=== PATIENT | female | born 1975 | race Caucasian/White ===

== ENCOUNTER 2016-12-01 17:07 | Inpatient (IN) | payer OTHER ==
[~2016-12-01] VITALS: Ht 167.6 cm; Wt 86.8 kg
[~2016-12-01 17:07] MED LIST: BUTA1CAP16 PO; DULO30CA PO; ELET20TA PO; HYDR-3825 PO; KLO5T PO; ONDA8TAB10 PO; OXYC-466 PO; PREG225C PO; TOPI100T32 PO
[2016-12-01 17:10] VITALS: BP 134/84; PULSE 103; RESP 20; O2SAT 100
--- NOTE | 2016-12-01 18:04 | ED.REPORT ---
HPI-General Illness Date of Service Dec 01, 2016 ED Provider: Chester Donaldson MD The patient is a 40 year old female with a complex history of Ankylosing spondylitis and fibromyalgia who presents to the ED with left leg swelling that began several weeks ago. She was seen in her [facility] clinic earlier today for ongoing/increased swelling and pain to the left leg. The pain has been radiating up to her thigh. Ultrasound at the clinic revealed a left knee DVT and her presentation was concerning for PE. CT imaging at the Residency clinic confirmed bilateral PE. Patient is currently complaining of recent SOB, chronic constipation, abdominal pain and back pain. She denies any bloody stools. Patient denies taking estrogen pills, recent immobility and has no previous history of blood clot. Patient is 3 shots into her 4 shot Misty treatment. Nursing Notes Stated Complaint: BLOOD CLOTS IN LEG & LUNGS Chief Complaint: General Complaint Nursing Notes Reviewed: Yes Allergies: Coded Allergies: Sulfa (Sulfonamide Antibiotics) (Verified Allergy, Intermediate, RASH/ FEVER, 12/01/16) TAPE (Verified Adverse Reaction, Intermediate, blisters, 12/01/16) morphine (Verified Adverse Reaction, Mild, itchy, 12/01/16) Scheduled Duloxetine (Cymbalta) 30 Mg Capsule.dr 30 MG PO DAILY Pregabalin (Lyrica) 225 Mg Capsule 225 MG PO BID Rifampin (Rifampin) 150 Mg Capsule 150 MG PO BID Sumatriptan Succinate (Imitrex) 4 Mg/0.5 Ml Cartridge 4 MG SQ ASDIRECTED Topiramate (Topamax) 100 Mg Tablet 100 MG PO BID Scheduled PRN Butalbital/Aspirin/Caff 50-325-40 mg (Fiorinal 50-325-40 mg) 1 Each Capsule 1-2 EACH PO Q4 PRN PRN Migraine Clonazepam (Clonazepam) 0.5 Mg Tab 0.5 MG PO TID PRN PRN For Anxiety Eletriptan HBr (Relpax) 20 Mg Tablet 20 MG PO BID PRN PRN MIGRAINE Hydrocodone-Acetaminophen 7.5-325 mg (Hydrocodone-Acetaminophen 7.5-325 mg) 1 Each Tablet 1 EACH PO BID PRN PRN For Pain Ondansetron ODT (Ondansetron ODT) 8 Mg Tab.rapdis 8 MG PO Q8 PRN PRN prn Propranolol HCl (Propranolol HCl) 20 Mg Tablet 20 MG PO TID PRN PRN Headache oxyCODONE-Acetaminophen 10-325 mg (oxyCODONE-Acetaminophen 10-325 mg) 1 Each Tablet 1 TABLET PO HS PRN PRN For Pain Miscellaneous Medications Adalimumab (Humira) 10 Mg/0.2 Ml Syringekit 10 MG SQ General Time Seen by MD: 18:02 Chief Complaint Other (LLE swelling) Hx Obtained From: Patient Arrived By: Walk-in Sudden in Onset?: No Onset Occurred: Yesterday Symptom Duration: Since onset Location: : Leg left Quality: Painful Radiation: : Leg left (Thigh) Severity: Current: Moderate Severity: Maximum: Moderate Associated with: Reports: Abdominal pain, Shortness of breath Pertinent Negative: Pt denies other symptoms Recent Healthcare: No recent hospitalization, Recent doctor visit Past Medical History Past Medical History Notes: Software Manager: Dr. Lopez Past Medical History Fibromyalgia and "lesions in brain" (chronic pain patient, on Percocet and Vicodin) Anxiety Diverticulitis Chronic intermittent abdominal pain, history of adhesions and bowel obstructions per patient Osteoarthritis Reports: Migraines Past Surgical History Bowel resection x2 for telescoping bowel Two exploratory abdominal surgeries Multiple surgeries for adhesions C-sections x3 Cholecystectomy Partial hysterectomy Tonsillectomy Smoking History Current Every Day Smoker Social History Alcohol Use: Denies alcohol use Drug Use: THC Other Social History: , Local resident Ambulatory Status Independent Review of Systems Full Review of Systems Respiratory: Reports: Shortness of breath GI: Reports: Abdominal pain, Constipation, Denies: Bloody/tarry stool Musculoskeletal: Reports: Back pain, Extremity pain (LLE), Extremity swelling ( LLE) Complete sys rev & neg: except as marked. Physical Exam Vital Signs Vital Signs Date Time Temp Pulse Resp B/P Pulse Ox O2 Delivery O2 Flow Rate FiO2 12/01/16 17:10 36.7 103 20 134/84 100 Room Air Initial VS: Reviewed Neck: Supple, Non-tender, Full range of motion Skin: Warm, Dry, No cyanosis Neurologic: Alert, Oriented, Nonfocal Psychiatric: Mood/affect normal, Behavior normal, Normal thought content General/Constitutional: Awake, Alert Distress / Hydration: Positive: Distress mild Head / Eyes: Atraumatic, Normocephalic, PERRL Respiratory / Chest: Atraumatic, Breath sounds NL, Breath sounds = bilat Resp Distress / Stridor: Positive: Resp distress moderate Cardiovascular: Heart rate NL, Regular rhythm, Heart sounds NL, No gallop, No murmurs, No rubs Left calf swelling and tenderness significantly worse than the right Abdomen: Atraumatic, Soft, Non-tender, No distention Interpretation & Diagnostics Lab Results Interpretation Result Diagram: 12/01/16182812/01/16 182 Test 12/01/16 18:29 White Blood Count 5.2th/mm3 (3.8-10.1) Red Blood Count 4.76mil/mm3 (3.90-5.20) Hemoglobin 14.6g/dL (12.0-15.6) Hematocrit 42.7% (35.0-46.0) Mean Corpuscular Volume 89.7fL (81-100) Mean Corpuscular Hemoglobin 30.7pg (27.0-35.0) Mean Corpuscular Hemoglobin Concent 34.2% (32.0-37.0) Red Cell Distribution Width 12.9% (12.3-15.4) Platelet Count 220bil/L (150-400) Neutrophils (%) (Auto) 41.3% (40-74) Lymphocytes (%) (Auto) 43.4% (14-46) Monocytes (%) (Auto) 9.7% (4-12) Eosinophils (%) (Auto) 4.8% (0-5) Basophils (%) (Auto) 0.6% (0-3) Prothrombin Time 10.3sec (8.1-12.5) Prothromb Time International Ratio 0.96ratio Sodium Level 142mEq/L (134-144) Potassium Level 3.7mEq/L (3.5-5.2) Chloride Level 106mEq/L (97-108) Carbon Dioxide Level 22mmol/L (18-29) Blood Urea Nitrogen 10mg/dL (6-20) Creatinine 0.68mg/dL (0.57-1.00) Estimat Glomerular Filtration Rate 138mL/min (>59) Glucose Level 89mg/dL (60-99) Calcium Level 9.0mg/dL (8.5-10.1) Magnesium Level 1.9mg/dL (1.6-2.6) Total Bilirubin 0.2mg/dL (0.0-1.2) Aspartate Amino Transf (AST/SGOT) 11U/L (0-50) Alanine Aminotransferase (ALT/SGPT) 10U/L (0-32) Alkaline Phosphatase 60U/L (25-150) Troponin T < 0.010ug/L (0.0-0.011) Pro-B-Type Natriuretic Peptide 83.47pg/mL (0-130) Total Protein 6.9g/dL (6.4-8.4) Albumin 3.9g/dL (3.4-5.0) Human Chorionic Gonadotropin, Qual Negative (Negative) ECG Interpretation ECG Interpretation: Sinus rhythm Rate 75 bpm Normal axis Normal intervals No ST segment changes Nonspecific intraventricular conduction delay Unchanged prior 07/19/13 Time: 19:06 Interpreted by: ED physician X-Ray Chest Interpretation Chest Xray Interpretation: Clinic IMPRESSION: No acute cardiopulmonary disease. Dictated by: Raymond COYA Interpreted: Shirley Villegas MD on 12/01/2016 at 14:02 Transcribed by: LIANA on 12/01/2016 at 17:27 Interpretation / Wet Read by: Interpret - Radiologist CT Chest Interpretation IMPRESSION: 1. Abnormal study demonstrating bilateral pulmonary emboli. 2. Findings telephoned to Dr. Maren Valdovinos on 12/01/16 at 1643 hrs. Dictated by: Lorene Mcmanus MD, PhD on 12/01/2016 at 16:38 Study type: CT pulm angiogram Interpretation / Wet Read by: Interpret - Radiologist US Focused OB Exam Interpreted by: Radiologist US Focused Lower Ext Venous Clinic IMPRESSION: Abnormal study demonstrating deep vein thrombosis involving the left popliteal vein. Left popliteal vein thrombosis is near occlusive. Dictated by: Lorene Mcmanus MD, PhD on 12/01/2016 at 13:24 Re-Eval/Medical Decision Med Decision/Clinical Course In summary, the patient is a 41-year-old female with ankylosing spondylitis, on Humira, who presents to the emergency department after workup as an outpatient revealed left lower extremity DVT as well as bilateral pulmonary emboli. Upon arrival in the emergency department the patient is extremely anxious and reported pleuritic chest pain. Examination reveals findings consistent with left lower extremity DVT. Patient was placed on continuous cardiac monitoring/pulse oximetry. She was noted to have good oxygen saturation on room air. EKG: Sinus rhythm Rate 75 bpm Normal axis Normal intervals No ST segment changes Nonspecific intraventricular conduction delay Unchanged prior 07/19/13 Chest X-ray IMPRESSION: No acute cardiopulmonary disease. US DVT: IMPRESSION: Abnormal study demonstrating deep vein thrombosis involving the left popliteal vein. Left popliteal vein thrombosis is near occlusive. CT Angiogram IMPRESSION: 1. Abnormal study demonstrating bilateral pulmonary emboli. 2. Findings telephoned to Dr. Maren Valdovinos on 12/01/16 at 1643 hrs. Laboratory studies obtained as below: CBC unremarkable CMP unremarkable Coag Normal Cause of patient's DVT and pulmonary emboli remain unclear. Patient has no history of hypercoagulability. She has no recent prolonged immobilization and is not taking exogenous estrogens. While she does have bilateral pulmonary emboli and is symptomatic there is at this time no evidence of hemodynamic instability as a result thereof. Therefore, I do not feel that treatment with TPA is immediately indicated. Patient was started on heparin infusion and will be admitted to the hospitalist service for further management and workup of these apparently unprovoked DVT/PE. Patient was transferred in stable condition. Time of Eval: 19:24 Re-Evaluation/Progress Note: Pain is still present. She is informed of her current and pending results. All questions about the intended treatment plan are addressed. Patient understands and agrees with the plan. Consultation : Referral / Consult Name: Jeffry Khan MD Consulted With: Hospitalist Call Returned at: 20:03 Hourly Shift: Will see patient, Agrees with eval, Agrees with plan, Accepts admit Counseled Regarding: Diagnosis, Lab results, Need for admission Discharge & Departure Primary Impression: DVT (deep venous thrombosis) DVT location: lower extremity Affected thrombotic vein of extremity: unspecified vein of extremity Laterality: left Chronicity: acute Qualified Code: I82.402 - Acute embolism and thrombosis of unspecified deep veins of left lower extremity Additional Impressions: Pulmonary embolism Pulmonary embolism type: other Chronicity: acute Acute cor pulmonale presence: without acute cor pulmonale Qualified Code: I26.99 - Other pulmonary embolism without acute cor pulmonale Pleuritic chest pain Anxiety Immunocompromised state Disposition: ADMITTED TO HOSPITAL Discharge Condition All VS Reviewed: Yes Condition: Improved Referrals: Esperanza Burrell DO (PCP) Crit Care Except Billable Proc Time Spent: 75-104 minutes Services Performed: Patient management by me, Time spent at bedside, Reviewing test results, Reviewing imaging, Discussing patient care, Documentation in record, Time with fam/surrogate Critical Care Notes: Initiation of heparin for management of acute DVT with bilateral pulmonary emboli. Discussions with family/consultants. Scribe Attestation Portions of this note were transcribed by Dax Dickerson. I, Dr. Donaldson, personally performed the history, physical exam and medical decision-making; I reviewed and confirmed the accuracy of the information in the transcribed note. Signed by: Dax Dickerson, 12/01/16. copies to: Esperanza Burrell Beck O MD Dec 01, 2016 18:04 DAX DICKERSON Dec 01, 2016 18:29
[2016-12-01] MEDS ORDERED: Heparin 25K Unit/500mL 0.45 NS 25,000 UNIT in IV Premix 1 EACH IV ONE (18:30)
[2016-12-01] MEDS ORDERED: Heparin 5,000 Unit/mL Inj IVPUSH ONE ×2 (18:30→18:45)
[2016-12-01 18:40] LABS: BASOPHILS % (AUTO) 0.6 % (0-3); EOSINOPHILS % (AUTO) 4.8 % (0-5); MONOCYTES % (AUTO) 9.7 % (4-12); Mean Corpuscular Hemoglobin 30.7 pg (27.0-35.0); Mean Corpuscular Volume 89.7 fL (81-100); NEUTROPHILS % (AUTO) 41.3 % (40-74); Platelet Count 220 bil/L (150-400)
[2016-12-01] MEDS ORDERED: Ondansetron 2 mg/mL 2 mL Inj IVPUSH PRN (18:55)
[2016-12-01] MEDS ORDERED: Alum-Mag Hydrox-Simeth 30 mL Suspension PO PRN ×2 (18:55→19:30)
[2016-12-01 19:06] LABS: TROPONIN T < 0.010 ug/L (0.0-0.011)
[2016-12-01 19:08] LABS: INR 0.96 ratio
[2016-12-01 19:12] LABS: Magnesium 1.9 mg/dL (1.6-2.6)
[2016-12-01] MEDS ORDERED: HYDROmorphone 1 mg/mL Inj IVPUSH ONE (19:25)
[2016-12-01] MEDS ORDERED: Polyethylene Glycol (PEG) 17 Gm Powder PO PRN (19:30)
[2016-12-01] MEDS ORDERED: HYDROmorphone 0.5 mg/0.5 mL iSecure Syringe IVPUSH ONE (19:35)
[2016-12-01] MEDS: Ondansetron 2 mg/mL 2 mL Inj IVPUSH PRN (19:58)
--- NOTE | 2016-12-01 20:35 | PCM.HPMED ---
Subjective Date of Service Dec 01, 2016 Primary Provider: Admitting Physician: Primary Care Physician: Esperanza Burrell DO Attending Physician: Admit Status: From the Emergency Department, Full Admit, [facility] Telemetry Chief Complaint: New diagnosis of Pulmonary embolism and DVT History of Present Illness: Meena Goldberg is a 41 yo woman with PTSD, chronic migraine, chronic pain disorder , fibromyalgia, ankylosing spondylitis, and latent TB on Rifampin who presents to [facility] emergency department, transferred from the Residency clinic for treatment of Pulmonary embolism and DVT diagnosed earlier today Apparently she developed a left leg pain and swelling 3 weeks ago after she came back from a family reunion in [place], [place]. The pain moves from around her left ankle but had eventually involved her lower leg and currently now involving her mid-thigh. She also developed left leg pain and had to use a cane to help with mobility. Patient denied trauma or injury to her left leg. Denies any recent airplane of prolonged car trips. Denies taking oral contraceptives Patient also reporting shortness of breathe with associated pleuritic chest pain under her ribs, patient had to do shallow breathing as deep breaths exacerbates the pain. Patient saw her iron pourer, Dr. Lopez. The U/S was done stat and showed Left popliteal vein thrombosis is near occlusive. Dr. Lopez then send the patient to the Residency clinic where a CT angiogram was performed confirming Pulmonary embolism. She was transferred to the Emergency department Case discussed with Dr Donaldson, Heparin started with plans to admit for further investigation Review of Systems: Pertinent positives as noted in HPI. All other systems were reviewed and are negative Allergies Coded Allergies: Sulfa (Sulfonamide Antibiotics) (Verified Allergy, Intermediate, RASH/ FEVER, 12/01/16) TAPE (Verified Adverse Reaction, Intermediate, blisters, 12/01/16) morphine (Verified Adverse Reaction, Mild, itchy, 12/01/16) Home Medications From [facility], not yet confirmed Meean Goldberg [id number] 1975 12/01/2016 02:00 PM 1/6 albuterol sulfate HFA 90 mcg/actuation aerosol inhaler inhale 2 puff by inhalation route every 4 - 6 hours as needed baclofen 20 mg tablet take 1/2 to 2 tablets orally at night as needed Humira Pen 40 mg/0.8 mL subcutaneous one injection every other week hydrocodone 7.5 mg-acetaminophen 325 mg tablet take 1 tablet by oral route twice a day for pain as needed Imitrex 6 mg/0.5 mL subcutaneous solution inject 0.5 milliliter by subcutaneous route once; may be repeated 1 hour after the first dose if headache pain returns or increases in severity; do not exceed 2 doses within 24 hours Lovenox 80 mg/0.8 mL subcutaneous syringe inject (1MG/KG) by subcutaneous route every 12 hours ondansetron 8 mg disintegrating tablet Take 1 tablet by mouth every 8 hours as needed for severe nausea propranolol 20 mg tablet take 1 tablet by oral route 2 times daily rifampin 300 mg capsule T 2 po qd Topamax 100 mg tablet take 1 tablet by oral route 2 times every day warfarin 5 mg tablet take 1 tablet by oral route every day PMH Depression, Conversion disorder and anxiety PTSD Latent TB, currently on Rifampin (4 months course, monitored by Dr Chatterjee) Acute deep vein thrombosis (DVT) of popliteal vein of left lower extremity Chronic pain disorder Intractable chronic migraine without aura Intractable chronic migraine without aura and without status migrainosus Fibromyalgia Osteoarthritis Ankylosing spondylitis, on Misty but stopped due to TB infection . Surgical History None reported Family History Cancer: Sister and Aunt Father and Sister has arthritis Grandfather had a bleeding disorder Social History Hx Alcohol Use: No Hx Substance Use: Yes (marijuana, last use 5 days ago) Smoking Status: Current Every Day Smoker Living Arrangement: with Family Exam Vital Signs Vital Sign - Last Date Time Temp Pulse Resp B/P Pulse Ox O2 Delivery O2 Flow Rate FiO2 12/01/16 17:10 36.7 103 20 134/84 100 Room Air Exam General: Alert, Oriented X3, Cooperative, with mild respiratory distress but with low voice and shallow breathing Eyes: PERRLA, Scleral Anicteric Mouth: Mouth Normal, Mucous Membranes Moist/[place] Neck: Supple, no Thyromegaly, trachea central. Chest & Lungs: Clear to auscultation & percussion, No adventitious breath sounds, no crackles, no wheeze Cardiovascular: Normal S1, Normal S2, No Murmurs/Rubs/Gallops, Regular Rate/ Rhythm, (No JVD, no peripheral edema) Pulses: Radial (present and equal), Dorsalis Pedi (present and equal) Abdomen: Soft, Non-tender, Non-distended, Normoactive bowel tones. Musculoskeletal: Unremarkable. Normal range of motion, no swollen or erythematous joints Extremities: Left leg more swollen compared to right leg Skin: No rashes. Warm and dry, no erythematous areas Neurological: Grossly neurologically intact, Normal Speech, Sensation Intact Lymphatic: Lymph nodes Cervical and Axillary not palpable Lab and Diagnostics Labs Laboratory Tests Test 12/01/16 18:29 White Blood Count 5.2th/mm3 (3.8-10.1) Red Blood Count 4.76mil/mm3 (3.90-5.20) Hemoglobin 14.6g/dL (12.0-15.6) Hematocrit 42.7% (35.0-46.0) Mean Corpuscular Volume 89.7fL (81-100) Mean Corpuscular Hemoglobin 30.7pg (27.0-35.0) Mean Corpuscular Hemoglobin Concent 34.2% (32.0-37.0) Red Cell Distribution Width 12.9% (12.3-15.4) Platelet Count 220bil/L (150-400) Neutrophils (%) (Auto) 41.3% (40-74) Lymphocytes (%) (Auto) 43.4% (14-46) Monocytes (%) (Auto) 9.7% (4-12) Eosinophils (%) (Auto) 4.8% (0-5) Basophils (%) (Auto) 0.6% (0-3) Prothrombin Time 10.3sec (8.1-12.5) Prothromb Time International Ratio 0.96ratio Activated Partial Thromboplast Time 25.0sec (22.8-33.0) Sodium Level 142mEq/L (134-144) Potassium Level 3.7mEq/L (3.5-5.2) Chloride Level 106mEq/L (97-108) Carbon Dioxide Level 22mmol/L (18-29) Blood Urea Nitrogen 10mg/dL (6-20) Creatinine 0.68mg/dL (0.57-1.00) Estimat Glomerular Filtration Rate 138mL/min (>59) Glucose Level 89mg/dL (60-99) Calcium Level 9.0mg/dL (8.5-10.1) Magnesium Level 1.9mg/dL (1.6-2.6) Total Bilirubin 0.2mg/dL (0.0-1.2) Aspartate Amino Transf (AST/SGOT) 11U/L (0-50) Alanine Aminotransferase (ALT/SGPT) 10U/L (0-32) Alkaline Phosphatase 60U/L (25-150) Troponin T < 0.010ug/L (0.0-0.011) Pro-B-Type Natriuretic Peptide 83.47pg/mL (0-130) Total Protein 6.9g/dL (6.4-8.4) Albumin 3.9g/dL (3.4-5.0) Human Chorionic Gonadotropin, Qual Negative (Negative) Result Diagram: 12/01/16 1829 12/01/161828 X-Rays, CTs and MRIs CT ANGIO CHEST PULMONARY EMBOLISM 12/01 IMPRESSION: 1. Abnormal study demonstrating bilateral pulmonary emboli. Dictated by: Lorene Mcmanus MD, PhD on 12/01/2016 at 16:38 Approved by: Lorene Mcmanus MD, PhD on 12/01/2016 at 16:47 US VEINOUS LEG DUPLEX UNILATERAL, LEFT 12/01 IMPRESSION: Abnormal study demonstrating deep vein thrombosis involving the left popliteal vein. Left popliteal vein thrombosis is near occlusive. Dictated by: Lorene Mcmanus MD, PhD on 12/01/2016 at 13:24 Approved by: Lorene Mcmanus MD, PhD on 12/01/2016 at 13:25 X-RAY CHEST, TWO VIEWS 12/01 IMPRESSION: No acute cardiopulmonary disease. Dictated by: Raymond Lynch [facility] Interpreted: Shirley Villegas MD on 12/01/2016 at 14: 02 Transcribed by: LIANA on 12/01/2016 at 17:27 Approved by: Shirley Villegas M.D. on 12/01/2016 at 17:13 Assessment & Plan Meena Goldberg is a 41 yo woman with PTSD, chronic migraine, chronic pain disorder , fibromyalgia, ankylosing spondylitis, and latent TB on Rifampin who presents to [facility] emergency department, transferred from the [facility] clinic for treatment of Pulmonary embolism and DVT 1. Venous thrombotic disease with Pulmonary embolism and Left leg DVT. Present on admission Etiology or provoking factor is unclear at this point. Likely has a underlying Hypercoagulable condition. Unfortunately patient has received anticoagulation prior to sending a Hypercoagulable panel. Patient is active and mobile with no recent long airplane or car trips. Malignancy can also be considered - continue anticoagulations with Heparin drip, monitor for bleeding complications - complete echo to rule out right heart strain - consider Hematology consult inpatient or outpatient based on clinical course 2. Latent Tuberculosis. Present on admission. Active - continued on Rifampin 600 mg daily - continue follow up with Dr Chatterjee at the Infectious disease clinic 3. Acute on Chronic pain syndrome. Present on admission - continue Hydrocodone/APAP, Dilaudid IV PRN for acute pain related to Pulmonary embolism 4. Chronic Ankylosis Spondylitis Chronic condition with ongoing back pain with HLA-B27 +. - Humira will be planned to resume soon now that TB treatments are initiated - plans to repeat MRI of lower back as outpatient - follow up with Dr Lopez as outpatient 5 Chronic Fibromyalgia - continue Baclofen and narcotics 6 Chronic Migraine - continue Topamax and Propranolol daily for prophylaxis - Imitrex as need for migraine attack - Acetaminophen as needed for mild pain/fever/headache - Bowel regimen as needed - Antiemetic as needed Patient admitted under inpatient status with expected length of stay > 2 midnights for severity of present symptoms, complexities of treatment plan and risk for adverse event . Resuscitation Status: CPR: Attempt Resuscitation Jeffry Khan MD Dec 01, 2016 19:30
[2016-12-01 20:57] VITALS: BP 114/71; PULSE 78; RESP 18; O2SAT 95
[2016-12-01 21:02] VITALS: PULSE 75
[2016-12-01] MEDS ORDERED: HYDROmorphone 1 mg/mL Inj IVPUSH PRN (21:55)
[2016-12-01] MEDS ORDERED: PROP20TA5 PO (22:01)
[2016-12-01] MEDS ORDERED: SUMA4KIT SQ (22:01)
[2016-12-01] MEDS ORDERED: ADAL10SY SQ (22:03)
[2016-12-01] MEDS ORDERED: RIFA150C2 PO (22:05)
[2016-12-01] MEDS ORDERED: Heparin Protocol Boluses IVPUSH PRN (22:15)
[2016-12-01] MEDS: HYDROmorphone 0.5 mg/0.5 mL iSecure Syringe IVPUSH PRN (22:58)
--- NOTE | 2016-12-02 01:32 | NUR ---
Admit/Pain/DVT/Heparin Admitted to room 2025 @ 2100 , Director Of [employer]s Araceli assisting in assessment interviiew with history and medication RTeQ. Pain mostly on left side Rt DVT, Bilateral PE causing SOB and difficulty breathing, Anxiety rt situation and pain, gave ativan IV 1 Mg , for Pain 1 Mg IV dilaudid. Swelling in lower rt extremity, pain in heel and sole of left foot. 0030 Ptt Heparin - 94.2, decreased Gtt 1 U/Kg/Hr. Passive affect using call light sparingly.2 L O2 per [place] Tele: SR 70
[2016-12-02] MEDS ORDERED: Aspirin-Caffeine-Butalbital Tablet PO PRN (01:55)
[2016-12-02] MEDS ORDERED: oxyCODONE-Acetamin 10-325 mg Tablet PO PRN (01:55)
[2016-12-02] MEDS: HYDROmorphone 0.5 mg/0.5 mL iSecure Syringe IVPUSH PRN ×4 (04:15→22:14)
[2016-12-02 04:24] VITALS: BP 84/56; PULSE 64; RESP 14; O2SAT 95
[2016-12-02 08:33] VITALS: BP 90/59; PULSE 68; RESP 20; O2SAT 99
[2016-12-02] MEDS: DULoxetine 30 mg DR Capsule PO SCH (08:40)
[2016-12-02 10:18] VITALS: PULSE 70
[2016-12-02 10:21] LABS: Mean Corpuscular Hemoglobin 30.7 pg (27.0-35.0); Mean Corpuscular Volume 91.2 fL (81-100)
--- NOTE | 2016-12-02 11:19 | PCM.PNMED ---
Subjective Date of Service Dec 02, 2016 Subjective She is still short of breath and having pleuritic chest pain. She is also having right upper quadrant abdominal pain which increases with movement. She denies any nausea or vomiting. She is quite sedated from her pain medication, Dilaudid. No cough or hemoptysis. No diarrhea. No overnight events Exam Vital Signs Vital Sign - Last Date Time Temp Pulse Resp B/P Pulse Ox O2 Delivery O2 Flow Rate FiO2 12/02/16 10:18 70 12/02/16 08:33 36.7 20 90/59 99 Nasal Cannula 1.00 Intake and Output 12/01/16 12/01/16 12/02/16 Cumulative From/Thru 15:00 23:00 07:00 12/01/16 17:10 - 12/02/16 06:31 Intake Total 311 ml 311 ml Balance 311 ml 311 ml Intake IV Total 311 ml 311 ml Exam Alert and oriented -3, anxious. Tachypneic. Starter. Anicteric sclera. Lungs are clear with increased rate and effort Heart is regular without murmur gallop or rub Abdomen soft nontender, flat. There is no right upper quadrant tenderness with palpation. Extremities are free of edema. Skin is free of rash or lesions. IVs and Medications Medications Reviewed: Medications were reviewed in detail Lab and Diagnostics Result Diagram: 12/02/16 1005 12/01/16 1829 X-Rays, CTs and MRIs CT ANGIO CHEST PULMONARY EMBOLISM 12/01 IMPRESSION: 1. Abnormal study demonstrating bilateral pulmonary emboli. Dictated by: Lorene Mcmanus MD, PhD on 12/01/2016 at 16:38 Approved by: Lorene Mcmanus MD, PhD on 12/01/2016 at 16:47 US VEINOUS LEG DUPLEX UNILATERAL, LEFT 12/01 IMPRESSION: Abnormal study demonstrating deep vein thrombosis involving the left popliteal vein. Left popliteal vein thrombosis is near occlusive. Dictated by: Lorene Mcmanus MD, PhD on 12/01/2016 at 13:24 Approved by: Lorene Mcmanus MD, PhD on 12/01/2016 at 13:25 X-RAY CHEST, TWO VIEWS 12/01 IMPRESSION: No acute cardiopulmonary disease. Dictated by: Raymond Lynch Scot Interpreted: Shirley Villegas MD on 12/01/2016 at 14: 02 Transcribed by: LIANA on 12/01/2016 at 17:27 Approved by: Shirley Villegas M.D. on 12/01/2016 at 17:13 Assessment & Plan Meena Goldberg is a 41 yo woman with PTSD, chronic migraine, chronic pain disorder , fibromyalgia, ankylosing spondylitis, and latent TB on Rifampin who presents to [facility] emergency department, transferred from the [facility] clinic for treatment of Pulmonary embolism and DVT 1. Pulmonary embolism and Left leg DVT. Present on admission and stable Etiology or provoking factor is unclear at this point. Likely has a underlying Hypercoagulable condition. Unfortunately patient has received anticoagulation prior to sending a Hypercoagulable panel. Patient is active and mobile with no recent long airplane or car trips. Malignancy can also be considered - continue anticoagulations with Heparin drip, monitor for bleeding complications - complete echo to rule out right heart strain - Continue anticoagulation. Will discuss oral anticoagulant options with her over the next 24 hours. 2. Latent Tuberculosis. Present on admission. Active and stable - continued on Rifampin 600 mg daily - continue follow up with Dr Chatterjee at the Infectious disease clinic 3. Acute on Chronic pain syndrome. Present on admission and active - continue Hydrocodone/APAP, Dilaudid IV PRN for acute pain related to Pulmonary embolism. She does appear to be somewhat somnolent from her Dilaudid. We will have to decrease the dose to some degree. 4. Chronic Ankylosis Spondylitis, present on admission and stable. Chronic condition with ongoing back pain with HLA-B27 +. - Humira will be planned to resume soon now that TB treatments are initiated - plans to repeat MRI of lower back as outpatient - follow up with Dr Lopez as outpatient 5 Chronic Fibromyalgia, present on admission and stable - continue Baclofen and narcotics 6 Chronic Migraine, present on admission and stable - continue Topamax and Propranolol daily for prophylaxis - Imitrex as need for migraine attack - Acetaminophen as needed for mild pain/fever/headache - Bowel regimen as needed - Antiemetic as needed Patient admitted under inpatient status with expected length of stay > 2 midnights for severity of present symptoms, complexities of treatment plan and risk for adverse event . Resuscitation Status: CPR: Attempt Resuscitation Cosmo Sadler MD Dec 02, 2016 11:19
[2016-12-02 12:22] VITALS: BP 101/67; PULSE 68; RESP 10; O2SAT 100
--- NOTE | 2016-12-02 13:55 | NUR ---
Social Work: Screen/Multidisciplinary Rounds D: Per EMR review, pt is a 41 year old female admitted for DVT/PE. Pt is [employer] Insurance. PCP is Esperanza Burrell DO. NOK Is Rob Goldberg, spouse. Advanced directives not completed- information left at bedside. Readmit score not entered at this time. Pt discussed in Multidisciplinary rounds. Capacity for self care discussed; that patient is I with her own care. RN requests [employer] visit to check in with patient and reports patient has a significant mental health history. W[employer]ER attempted to meet with patient to check in and complete initial case management assessment. The patient was found laying supine in her bed and was very somnolent and lethargic frequently nodding off. Per RN patient just received a dose of Dilaudid. W[employer] J[employer] LO[employer]ER will attempt to meet with patient when she is more alert and oriented. Per EMR review; pt lives in [place], with her spouse and is I with ADLs and self-care at baseline. A: Pt who is I at baseline. P: Evolving; W[employer]ER to follow up with initial assessment when pt is alert and oriented. W[employer] to continue to follow to assess for unmet d/c needs. MARK De Souza
[2016-12-02] MEDS: Ondansetron 2 mg/mL 2 mL Inj IVPUSH PRN (14:07)
[2016-12-02] MEDS: 0.9% Sodium Chloride 1,000 ML IV SCH (15:42)
[2016-12-02] MEDS: Heparin 25K Unit/500mL 0.45 NS 25,000 UNIT in IV Premix 1 EACH IV SCH (15:45)
--- NOTE | 2016-12-02 16:32 | DRSVH ---
[facility] [address] [place] [address] Echocardiogram Report Name: CHRISTINA HOFFMAN MStudy Date : 12/02/2016 Height: 66 in Hospital Exam Location: [facility] Weight: 189 lb Gender: Female BSA: 2.0 m2 : 1975 Age: 41 yrs BP: 84/56 mmHg Reason For Study: Pulmonary- Embolism Ordering Physician: TIFFANYIST [facility] Performed By: Zina Hernández Referring Physician: Amarilys Soto Interpretation Summary Left ventricular wall thickness is mildly increased. The ejection fraction is estimated to be 60-65%. The right ventricular systolic function is normal. The right ventricular systolic pressure is estimated at 41 mmHg assuming a right atrial pressure of 15 mm Hg. Procedure: A two-dimensional transthoracic echocardiogram with color flow and Doppler was performed. The study quality was technically adequate. The patient was very sensitive to touch and had a challenging time tolerating imaging. There is no prior echocardiogram noted for this patient. The patient was in normal sinus rhythm during the exam. Left Ventricle: The left ventricle is normal in size. Left ventricular wall thickness is mildly increased. The ejection fraction is estimated to be 60- 65%. Right Ventricle: The right ventricle is grossly normal size. The right ventricular systolic function is normal. Atria: Both atria are normal in size. The interatrial septum is intact with no evidence for an atrial septal defect. Mitral Valve: The mitral valve leaflets appear borderline thickened, but open well. There is trace mitral regurgitation. Aortic Valve: The aortic valve is trileaflet. The aortic valve opens well. No aortic regurgitation is present. Tricuspid Valve: The tricuspid valve is normal in structure and function. There is trace tricuspid regurgitation. The right ventricular systolic pressure is estimated at 41 mmHg assuming a right atrial pressure of 15 mm Hg. Pulmonic Valve: The pulmonic valve is normal in structure and function. There is a trace or physiologic amount of pulmonic regurgitation. Great Vessels: The aortic root is normal size. The ascending aorta is normal in size. The IVC is dilated (diameter is greater than 2.1 cm) and it collapses less than 50% with a sniff. This suggests a high right atrial pressure of 15 mm Hg. Pericardium/ Pleura There is no pericardial effusion. There is no pleural effusion. MMode/2D Measurements & Calculations LVIDd: 5.0 cm RA long axis LVOT diam: 2.4 cm LVIDs: 3.2 cm LA A2 area: 17.3 cm asc Aorta Diam FS: 35.1 % LA A4 area: 13.8 cm RA area IVSd: 1.0 cm LA length (vol) Ao Arch Diam (Prox LVPWd: 1.1 cm : 13.4 cm Trans): 2.6 cm LA vol: 36.8 ml RA vol LA vol index : 34.8 ml RA : 17.8 mm2 IVC diam: 2.4 cm LV cordero. diameter/BSA LV sys. diameter/BSA TAPSE: 2.3 cm (cm/m^2): 2.5 (cm/m^2): 1.7 Doppler Measurements & Calculations Ao V2 max MV E max marcin MV E/A: 1.2 TR max marcin : 124.8 cm/sec : 66.8 cm/sec Med Peak E' Marcin : 253.2 cm/sec Ao max PG MV A max marcin TR max P.7 mmHg : 6.2 mmHg : 53.6 cm/sec E/E' med: 5.5 Ao mean PG LVOT Max Marcin : 122.1 cm/sec MARGARETTE(I,D): 4.0 cm sev ratio MV dec time Ao V2 mean LV V1 max PG MARGARETTE indexed to BSA : 0.20 sec : 91.3 cm/sec (cm^2/m^2): 2.1 Ao V2 VTI LV V1 VTI: 23.3 cm MARGARETTE(V,D): 4.5 cm2 Electronically signed by: Coy Duran on Reading Physician:12/02/2016 04:31 PM
--- NOTE | 2016-12-02 18:03 | NUR ---
Respiratory/Abdominal pain/Emesis Reports "deep" chest pain 7-810, MD aware. Tele SR 70s, no ectopy. BP 90/59 this AM, low 100s systolic this afternoon/evening. Patient reports she has difficulty catching her breath at rest. SPO2 99% on 1L NC. Reports consistent 7-8/10 pain in chest, worsens with deep breathing. SOB worsens significantly with activity. Reports rare cough. Patient had one episode of 500ccs emesis (undigested food), received 8mg IV zofran x1 with no further emesis throughout shift. Reports continual sharp pain from RLQ across and through to LLQ of abdomen, reports this is new for her since this AM. Administered 2mg IV Dilaudid x1 as well as 1mg IV x1 (MD decreased dose) in addition to PO Klonopin x1 and IV Ativan x1, patient reports continued 7-810 pain. Poor PO intake. Voiding dark sara urine via BSC this AM, urine color improving to dark yellow this evening.Patient is drowsy but wakens to voice and soft touch. STARK, reports full sensation but does endorse some mild numbness/tingling bilateral plantar side of feet as well as mild numbness on LLE. Very passive and soft spoken, speaks with a stutter, anxious and frequently asks "what the plan is from here", plan of care discussed multiple times with both RN and MD. NS infusing at 100mls/hour and heparin gtt currently at 18 units/kg/hour per orders and protocol.
[2016-12-02 19:57] VITALS: BP 108/62; PULSE 76; RESP 11; O2SAT 99
[2016-12-02 23:58] VITALS: BP 85/56; PULSE 80; RESP 12; O2SAT 96
[2016-12-03] VITALS (9 sets, daily range): BP systolic 94–99; BP diastolic 54–68; PULSE 56–72; RESP 14–20; O2SAT 97–100
[2016-12-03] MEDS: 0.9% Sodium Chloride 1,000 ML IV SCH ×3 (00:50→21:04)
--- NOTE | 2016-12-03 07:56 | NUR ---
Anxiety/Chest tightness/Discharge plan Patient c/o chest tightness when breathing deep or ambulating. Using ativan, clonipin, dilaudid, and tylenol to help with breathing. Easily SOB with activity. Up to bathroom with x1 SBA. Patient anxious about plan, asking questions about test results, discharge plan, etc. List of questions on white board for patient to ask doctor when they round.
[2016-12-03] MEDS: DULoxetine 30 mg DR Capsule PO SCH (10:02)
[2016-12-03] MEDS: Ondansetron 2 mg/mL 2 mL Inj IVPUSH PRN ×2 (10:02→18:20)
[2016-12-03] MEDS: HYDROmorphone 0.5 mg/0.5 mL iSecure Syringe IVPUSH PRN ×3 (10:02→21:05)
[2016-12-03 10:40] LABS: Mean Corpuscular Hemoglobin 30.2 pg (27.0-35.0); Mean Corpuscular Volume 91.2 fL (81-100)
[2016-12-03] MEDS: Heparin 25K Unit/500mL 0.45 NS 25,000 UNIT in IV Premix 1 EACH IV SCH (11:45)
--- NOTE | 2016-12-03 12:07 | NUR ---
Social Work: Initial Assessment/Multidisciplinary Rounds D: Per EMR review, pt is a 41 year old female admitted for DVT/PE. Pt is [facility] insurance with no LTC or VA benefits. PCP is Esperanza Burrell DO. NOK is Rob Goldberg, spouse, . Advanced directives not completed- information provided. Readmit score is low, 2/8. Pt discussed in Multidisciplinary rounds. Capacity for self care discussed; patient is I with self-care at baseline but has some mental health/anxiety history. Case Management requested to see patient to check in and provide community resources. HEAD OF STRATEGY met with the patient at bedside. Social work/dcp role explained, contact information and discharge planning checklist provided. See initial assessment. Pt lives at home with her family (spouse and three teenage sons) in a single story home with 2 steps to enter. The patient is I with the use of a cane. She does not drive and relies on her spouse for transportation. The patient has never had or skilled rehab. HEAD OF STRATEGY discussed pt's MH history; she states she has a history of doing outpatient counseling but is not currently attending. She feels it would be helpful but does not have time to attend due to responsibilities at home. HEAD OF STRATEGY reviewed patient substance use history which she denies. HEAD OF STRATEGY completed domestic violence screen which she reports no warning signs of interpersonal violence current or past. The patient was provided with outpatient MH resources but declined to have HEAD OF STRATEGY assist her in making an appointment. Patient denies any current discharge needs and expresses that she is anxious to get home. She states that her spouse will transport her home when ready. A: Pt who is I at baseline. P: Anticipate pt to discharge home via POV once medically stable; HEAD OF STRATEGY to continue to follow to assess for unmet discharge needs. MARK De Souza Addendum: 12/03/16 at 1213 by LOUISA ORELLANA Amended: Links added.
--- NOTE | 2016-12-03 13:51 | PCM.PNMED ---
Subjective Date of Service Dec 03, 2016 Subjective She is feeling better today. She still does have pleuritic chest pain on the left. She denies nausea. Less dyspnea. Less abdominal pain. Less anxiety. She did have emesis 1 this morning. No abdominal distention. No overnight events noted. Exam Vital Signs Vital Sign - Last Date Time Temp Pulse Resp B/P Pulse Ox O2 Delivery O2 Flow Rate FiO2 12/03/16 13:06 36.6 62 16 95/54 100 Nasal Cannula 2.00 Intake and Output 12/02/16 12/02/16 12/03/16 Cumulative From/Thru 15:00 23:00 07:00 12/01/16 17:10 - 12/03/16 06:32 Intake Total 2037 ml 3329 ml 5677 ml Output Total 1350 ml 1300 ml 2650 ml Balance 687 ml 2029 ml 3027 ml Intake Oral 1600 ml 1600 ml 3200 ml IV Total 437 ml 1729 ml 2477 ml Output Urine Total 800 ml 1200 ml 2000 ml Emesis 550 ml 100 ml 650 ml # Voids 3 4 7 Exam Alert and oriented -3, no distress. Fluent speech. Oxygen 2 L nasal cannula. Anicteric sclera. Lungs are clear with normal rate and effort Heart is regular without murmur gallop or rub Abdomen soft nontender, flat Extremities are free of edema. Skin is free of rash or lesions. IVs and Medications Medications Reviewed: Medications were reviewed in detail Lab and Diagnostics Result Diagram: 12/03/16 1008 12/03/16 1008 X-Rays, CTs and MRIs CT ANGIO CHEST PULMONARY EMBOLISM 12/01 IMPRESSION: 1. Abnormal study demonstrating bilateral pulmonary emboli. Dictated by: Lorene Mcmanus MD, PhD on 12/01/2016 at 16:38 Approved by: Lorene Mcmanus MD, PhD on 12/01/2016 at 16:47 US VEINOUS LEG DUPLEX UNILATERAL, LEFT 12/01 IMPRESSION: Abnormal study demonstrating deep vein thrombosis involving the left popliteal vein. Left popliteal vein thrombosis is near occlusive. Dictated by: Lorene Mcmanus MD, PhD on 12/01/2016 at 13:24 Approved by: Lorene Mcmanus MD, PhD on 12/01/2016 at 13:25 X-RAY CHEST, TWO VIEWS 12/01 IMPRESSION: No acute cardiopulmonary disease. Dictated by: Raymond Lynch [facility] Interpreted: Shirley Villegas MD on 12/01/2016 at 14: 02 Transcribed by: LIANA on 12/01/2016 at 17:27 Approved by: Shirley Villegas M.D. on 12/01/2016 at 17:13 Assessment & Plan Meena Goldberg is a 41 yo woman with PTSD, chronic migraine, chronic pain disorder , fibromyalgia, ankylosing spondylitis, and latent TB on Rifampin who presents to [facility] emergency department, transferred from the [facility] clinic for treatment of Pulmonary embolism and DVT 1. Pulmonary embolism and Left leg DVT. Present on admission and improving Etiology or provoking factor is unclear at this point. Likely has a underlying Hypercoagulable condition. Unfortunately patient has received anticoagulation prior to sending a Hypercoagulable panel. Patient is active and mobile with no recent long airplane or car trips. Malignancy can also be considered - continue anticoagulations with Heparin drip, monitor for bleeding complications - complete echo to rule out right heart strain - Continue unfractionated heparin convert to oral anticoagulation in the next 1 or 2 days. This will depend on her clinical improvement and oxygen needs. 2. Latent Tuberculosis. Present on admission. Active and stable - continued on Rifampin 600 mg daily - continue follow up with Dr Chatterjee at the Infectious disease clinic No changes 3. Acute on Chronic pain syndrome. Present on admission and active - continue Hydrocodone/APAP, Dilaudid IV PRN for acute pain related to Pulmonary embolism. She does appear to be somewhat somnolent from her Dilaudid. We will have to decrease the dose to some degree. No changes 4. Chronic Ankylosis Spondylitis, present on admission and stable. Chronic condition with ongoing back pain with HLA-B27 +. - Humira will be planned to resume soon now that TB treatments are initiated - plans to repeat MRI of lower back as outpatient - follow up with Dr Lopez as outpatient No changes 5 Chronic Fibromyalgia, present on admission and stable - continue Baclofen and narcotics No changes 6 Chronic Migraine, present on admission and stable - continue Topamax and Propranolol daily for prophylaxis - Imitrex as need for migraine attack No changes - Acetaminophen as needed for mild pain/fever/headache - Bowel regimen as needed - Antiemetic as needed Patient admitted under inpatient status with expected length of stay > 2 midnights for severity of present symptoms, complexities of treatment plan and risk for adverse event Possible discharge on February 03 or depending on pain control, was ambulated and oxygen demands. Changes medications, heparin drip . Resuscitation Status: CPR: Attempt Resuscitation Cosmo Sadler MD Dec 03, 2016 13:51
--- NOTE | 2016-12-03 19:31 | NUR ---
Anxiety/Emesis/Respiratory Continues to report "deep" chest pain 7-8/10 that has unchanged since admit even after 1mg IV dilaudid administrations, MD aware. Tele SR 70s, no ectopy. BP mid to high 90s systolic.Patient reports she has difficulty catching her breath at rest. SPO2 99% on 1L NC. Reports consistent 7-8/10 pain in chest, worsens with deep breathing and activity. Patient denies nausea prior to meals, however she has had two episodes of emesis today (approx 500ccs of undigested food) despite being pre medicated with 4mg IV zofran. Continues to report sharp pain from RLQ across and through to LLQ of abdomen although it is intermittent as opposed to consistent like yesterday. Frequently requests Ativan, stating "I just feel like I need to calm down". Administered IV Ativan 1mg x2 and PO Klonopin x1.
[2016-12-04] VITALS (9 sets, daily range): BP systolic 87–107; BP diastolic 51–68; PULSE 60–80; RESP 16–18; O2SAT 94–100
[2016-12-04] MEDS: HYDROmorphone 0.5 mg/0.5 mL iSecure Syringe IVPUSH PRN ×5 (01:10→22:34)
--- NOTE | 2016-12-04 06:00 | NUR ---
Pain / Anxiety Pt reported anxiety at HS prior to ativan administration being due; Klonopin administered with relief in symptoms until able to give ativan IVP. Pt utilized Q4H dilaudid administration for generalized pain in lungs, legs, stomach, and head, with relief upon reassessments. VSS. Tele SB 50s-60s. 1L NC in place for patient comfort; SpO2 99%. Pt reports ongoing difficulty breathing, worsened with activity; does ambulate effectively to BR with cane and SBA. Pt reported migraine this AM; Imitrex administered per patient request.
[2016-12-04] MEDS: 0.9% Sodium Chloride 1,000 ML IV SCH ×2 (06:43→16:53)
[2016-12-04 09:00] LABS: Mean Corpuscular Hemoglobin 30.4 pg (27.0-35.0); Mean Corpuscular Volume 90.8 fL (81-100)
[2016-12-04] MEDS: DULoxetine 30 mg DR Capsule PO SCH (09:34)
--- NOTE | 2016-12-04 10:49 | PCM.PNMED ---
Subjective Date of Service Dec 04, 2016 Subjective She is still having a fair amount of left-sided pleuritic chest pain. She feels generally weak. No nausea. She has no cough or hemoptysis. No leg pain. She was up out of bed several times yesterday. She still required 1-2 L of oxygen. If she is still having some abdominal pain which is around the belly button. She had one bowel movement said be normal yesterday. Nothing makes the abdominal pain better or worse other than palpation. No events noted. Exam Vital Signs Vital Sign - Last Date Time Temp Pulse Resp B/P Pulse Ox O2 Delivery O2 Flow Rate FiO2 12/04/16 08:30 36.9 68 18 101/65 100 Room Air 12/04/16 03:45 1.00 Intake and Output 12/03/16 12/03/16 12/04/16 Cumulative From/Thru 15:00 23:00 07:00 12/01/16 17:10 - 12/04/16 06:51 Intake Total 2952 ml 1974 ml 44034 ml Output Total 4650 ml 1000 ml 8300 ml Balance -1698 ml 974 ml 2303 ml Intake Oral 1480 ml 800 ml 5480 ml IV Total 1472 ml 1174 ml 5123 ml Output Urine Total 4000 ml 700 ml 6700 ml Urine/Stool Mix 300 ml 300 ml Emesis 650 ml 1300 ml # Voids 7 Exam Alert and oriented -3, no distress. Fluent speech. On oxygen. Small lethargic. Anicteric sclera. Lungs are clear with normal rate and effort Heart is regular without murmur gallop or rub Abdomen soft nontender, flat. There is some periumbilical tenderness with palpation. Extremities are free of edema. Skin is free of rash or lesions. Lab and Diagnostics Result Diagram: 12/04/16 0843 12/03/16 1008 X-Rays, CTs and MRIs CT ANGIO CHEST PULMONARY EMBOLISM 12/01 IMPRESSION: 1. Abnormal study demonstrating bilateral pulmonary emboli. Dictated by: Lorene Mcmanus MD, PhD on 12/01/2016 at 16:38 Approved by: Lorene Mcmanus MD, PhD on 12/01/2016 at 16:47 US VEINOUS LEG DUPLEX UNILATERAL, LEFT 12/01 IMPRESSION: Abnormal study demonstrating deep vein thrombosis involving the left popliteal vein. Left popliteal vein thrombosis is near occlusive. Dictated by: Lorene Mcmanus MD, PhD on 12/01/2016 at 13:24 Approved by: Lorene Mcmanus MD, PhD on 12/01/2016 at 13:25 X-RAY CHEST, TWO VIEWS 12/01 IMPRESSION: No acute cardiopulmonary disease. Dictated by: Raymond Lynch [facility] Interpreted: Shirley Villegas MD on 12/01/2016 at 14: 02 Transcribed by: LIANA on 12/01/2016 at 17:27 Approved by: Shirley Villegas M.D. on 12/01/2016 at 17:13 Assessment & Plan Meena Goldberg is a 41 yo woman with PTSD, chronic migraine, chronic pain disorder , fibromyalgia, ankylosing spondylitis, and latent TB on Rifampin who presents to [facility] emergency department, transferred from the [facility] clinic for treatment of Pulmonary embolism and DVT 1. Pulmonary embolism and Left leg DVT. Present on admission and improving Etiology or provoking factor is unclear at this point. Likely has a underlying Hypercoagulable condition. Unfortunately patient has received anticoagulation prior to sending a Hypercoagulable panel. Patient is active and mobile with no recent long airplane or car trips. Malignancy can also be considered -Continue her upper drip. Anticipate conversion to a anticoagulant orally tomorrow. 2. Latent Tuberculosis. Present on admission. Active and stable - continued on Rifampin 600 mg daily - continue follow up with Dr Chatterjee at the Infectious disease clinic No changes 3. Acute on Chronic pain syndrome. Present on admission and active - continue Hydrocodone/APAP, Dilaudid IV PRN for acute pain related to Pulmonary embolism. She does appear to be somewhat somnolent from her Dilaudid. We will have to decrease the dose to some degree. No changes to this regimen. 4. Chronic Ankylosis Spondylitis, present on admission and stable. Chronic condition with ongoing back pain with HLA-B27 +. - Humira will be planned to resume soon now that TB treatments are initiated - plans to repeat MRI of lower back as outpatient - follow up with Dr Lopez as outpatient No changes to medical regimen. 5 Chronic Fibromyalgia, present on admission and stable - continue Baclofen and narcotics No changes 6 Chronic Migraine, present on admission and stable - continue Topamax and Propranolol daily for prophylaxis - Imitrex as need for migraine attack 7. Abdominal pain, present since admission. This is been waxing and waning. It appears to be stable. The cause is unclear. We will continue to follow clinically. 8. Acute respiratory for hypoxia, present on admission and improving. This patient has been hypoxic requiring oxygen since the time of admission. She is slowly weaning off her need for oxygen with treatment of her pulmonary embolism. No changes - Acetaminophen as needed for mild pain/fever/headache - Bowel regimen as needed - Antiemetic as needed Patient admitted under inpatient status with expected length of stay > 2 midnights for severity of present symptoms, complexities of treatment plan and risk for adverse event Possible discharge on February 03 or depending on pain control, was ambulated and oxygen demands. Dangerous medications, heparin drip Anticipate conversion to oral anticoagulant tomorrow. We will have physical therapy see her today. Anticipate discharge in 1-2 days . Resuscitation Status: CPR: Attempt Resuscitation Cosmo Sadler MD Dec 04, 2016 10:49
--- NOTE | 2016-12-04 11:47 | NUR ---
Evaluation completed. Please go to "Notes" then click on "Assessments and Notes" (bottom left corner of screen). Then select appropriate discipline tab on top of screen.
[2016-12-04] MEDS: Ondansetron 2 mg/mL 2 mL Inj IVPUSH PRN ×3 (13:21→22:33)
[2016-12-04] MEDS ORDERED: Butalbital-Acet-Caffeine Tablet PO PRN (17:30)
--- NOTE | 2016-12-04 18:12 | NUR ---
Transfer Pt received PRN ativan, zofran, and dilaudid with her dinner. Family present at the bedside. Pt took all belongings and transferred to [facility] [place]. Report given to RENATE Yuan Heparin and NS running IV. Addendum: 12/04/16 at 1851 by JOHNIE FRENCH RN Arrived to floor with family at bedside with O2 and IVs infusing. Home med relabeled for in house use and stored in med refrigerator until ready for use. Pt speaking in whispers during orientation to room.
[2016-12-04] MEDS ORDERED: HUMIRA 40MG/0.8ML SUBQ ONE (18:30)
--- NOTE | 2016-12-05 00:05 | NUR ---
Chest pain: Pt c/o sharp chest pain 8/10, non radiating. Vitals stable. When RN went to assess pt, RN had to wake the patient up. EKG obtained, results normal SR. Upon reassessment, pt stated she found a good position to lay and feels better.
[2016-12-05] MEDS: 0.9% Sodium Chloride 1,000 ML IV SCH (03:00)
[2016-12-05 04:42] VITALS: BP 93/60; PULSE 65; RESP 18; O2SAT 96
--- NOTE | 2016-12-05 05:26 | NUR ---
NOC Note: Pt did not complain of any further chest pain, slept most of the night. Pt on 1 L O2 for comfort, denies SOB this shift. [place] [address]/04, c/o nausea at HS, medication administered; effective. Pt states she had BM 12/04, continues to have abdominal pain/back pain. Pt slept most of the night, son at bedside.
[2016-12-05 06:02] VITALS: PULSE 60
[2016-12-05] MEDS: Heparin 25K Unit/500mL 0.45 NS 25,000 UNIT in IV Premix 1 EACH IV SCH (07:42)
[2016-12-05] MEDS: DULoxetine 30 mg DR Capsule PO SCH (07:43)
[2016-12-05 08:54] VITALS: PULSE 66
[2016-12-05 09:14] VITALS: BP 111/71; PULSE 63; RESP 18; O2SAT 100
--- NOTE | 2016-12-05 10:39 | PCM.DIMED ---
Discharge Instructions Date of Service Dec 05, 2016 Dates of Hospitalization Dec 01, 2016 at 19:58 Discharge Diagnosis Discharge Diagnosis Left lower extremity DVT and bilateral pulmonary emboli Diet Discharge Diet: No restrictions, Other (see information on warfarin and diet) Activity Discharge Activity: No restrictions Patient Instructions Follow-up with PCP in: 1 week (See your primary care provider in two days so they can arrange blood tests and adjust your warfarin dose and decide how long you need the Lovenox injections) Wendy Blas MD Dec 05, 2016 10:39
[2016-12-05] MEDS ORDERED: APIX5TAB PO (10:43)
--- NOTE | 2016-12-05 10:52 | PCM.DC.MED ---
Discharge Summary Date of Service Dec 05, 2016 Dates of Hospitalization Date of Hospital Admission Dec 01, 2016 at 19:58 Date of Discharge: Dec 05, 2016 Providers: Admitting Physician: Jeffry Khan MD Primary Care Physician: Esperanza Burrell DO Attending Physician: Mynor Julien MD Diagnosis at Time of Discharge Diagnosis at Time of Discharge Left lower extremity DVT and bilateral pulmonary emboli Procedures XRay, CTs & MRIs CT ANGIO CHEST PULMONARY EMBOLISM 12/01 IMPRESSION: 1. Abnormal study demonstrating bilateral pulmonary emboli. Dictated by: Lorene Mcmanus MD, PhD on 12/01/2016 at 16:38 Approved by: Lorene Mcmanus MD, PhD on 12/01/2016 at 16:47 US VEINOUS LEG DUPLEX UNILATERAL, LEFT 12/01 IMPRESSION: Abnormal study demonstrating deep vein thrombosis involving the left popliteal vein. Left popliteal vein thrombosis is near occlusive. Dictated by: Lorene Mcmanus MD, PhD on 12/01/2016 at 13:24 Approved by: Lorene Mcmanus MD, PhD on 12/01/2016 at 13:25 X-RAY CHEST, TWO VIEWS 12/01 IMPRESSION: No acute cardiopulmonary disease. Dictated by: Raymond Lynch [facility] Interpreted: Shirley Villegas MD on 12/01/2016 at 14: 02 Transcribed by: LIANA on 12/01/2016 at 17:27 Approved by: Shirley Villegas M.D. on 12/01/2016 at 17:13 Brief History Meena Goldberg is a 41 yo woman with PTSD, chronic migraine, chronic pain disorder , fibromyalgia, ankylosing spondylitis, and latent TB on Rifampin who presents to [facility] emergency department, transferred from the [facility]idency clinic for treatment of Pulmonary embolism and DVT diagnosed earlier today Apparently she developed a left leg pain and swelling 3 weeks ago after she came back from a family reunion in [place], [place]. The pain moves from around her left ankle but had eventually involved her lower leg and currently now involving her mid-thigh. She also developed left leg pain and had to use a cane to help with mobility. Patient denied trauma or injury to her left leg. Denies any recent airplane of prolonged car trips. Denies taking oral contraceptives Patient also reporting shortness of breathe with associated pleuritic chest pain under her ribs, patient had to do shallow breathing as deep breaths exacerbates the pain. Patient saw her light rail signal technician, Dr. Lopez. The U/S was done stat and showed Left popliteal vein thrombosis is near occlusive. Dr. Lopez then send the patient to the Residency clinic where a CT angiogram was performed confirming Pulmonary embolism. She was transferred to the Emergency department Case discussed with Dr Donaldson, Heparin started with plans to admit for further investigation Hospital Course 1. Pulmonary embolism and Left leg DVT. Present on admission and improving Etiology or provoking factor is unclear at this point. Likely has a underlying Hypercoagulable condition. Unfortunately patient has received anticoagulation prior to sending a Hypercoagulable panel. Patient is active and mobile with no recent long airplane or car trips. Malignancy can also be considered -Received heparin drip during her hospital stay. -Discussed Warfarin vs Eliquis and she very much preferred Eliquis even when cautioned that it's not easily reversible like Warfarin would be if she had bleeding. But then discussed with a pharmacist as there is an interaction with rifampin which might make the Eliquis less effective. There is not an easy way to monitor the effectiveness of the Eliquis so warfarin would be preferred in this situation and she is agreeable. She will need Lovenox bridging but she is able to do this at home as she already does other subcutaneous injections herself. 2. Latent Tuberculosis. Present on admission. Active and stable - continued on her usual Rifampin - continue follow up with Dr Chatterjee at the Infectious disease clinic 3. Acute on Chronic pain syndrome. Present on admission and active - continued Hydrocodone/APAP, Dilaudid IV PRN for acute pain related to Pulmonary embolism. 4. Chronic Ankylosis Spondylitis, present on admission and stable. Chronic condition with ongoing back pain with HLA-B27 +. - Humira will be planned to resume soon now that TB treatments are initiated - plans to repeat MRI of lower back as outpatient - follow up with Dr Lopez as outpatient 5 Chronic Fibromyalgia, present on admission and stable - continued Baclofen and narcotics 6 Chronic Migraine, present on admission and stable - continued Topamax and Propranolol daily for prophylaxis - Imitrex as need for migraine attack 7. Abdominal pain, present since admission. This is been waxing and waning. It appears to be stable. The cause is unclear but has improved. 8. Acute respiratory for hypoxia, present on admission and improved. This patient was initially hypoxic requiring oxygen butwas slowly weaned off her need for oxygen with treatment of her pulmonary embolism. Exam Vital Signs (Last) Date Time Temp Pulse Resp B/P Pulse Ox O2 Delivery O2 Flow Rate FiO2 12/05/16 09:14 36.7 63 18 111/71 100 Room Air 12/05/16 04:42 2.00 Exam General: Alert and oriented, no acute distress Heart: Regular Lungs: Clear Abdomen: Soft, non-tender Extremities: Trace to 1+ pedal edema of left ankle Test 12/01/16 18:29 12/02/16 00:45 12/03/16 10:08 12/04/16 08:43 Neutrophils (%) (Auto) 41.3% (40-74) Lymphocytes (%) (Auto) 43.4% (14-46) Monocytes (%) (Auto) 9.7% (4-12) Eosinophils (%) (Auto) 4.8% (0-5) Basophils (%) (Auto) 0.6% (0-3) Prothrombin Time 10.3sec (8.1-12.5) Prothromb Time International Ratio 0.96ratio Magnesium Level 1.9mg/dL (1.6-2.6) Troponin T < 0.010ug/L (0.0-0.011) Pro-B-Type Natriuretic Peptide 83.47pg/mL (0-130) Human Chorionic Gonadotropin, Qual Negative (Negative) Hold Urine Received (Received) Sodium Level 139mEq/L (134-144) Potassium Level 3.7mEq/L (3.5-5.2) Chloride Level 108mEq/L (97-108) Carbon Dioxide Level 20mmol/L (18-29) Blood Urea Nitrogen 7mg/dL (6-20) Creatinine 0.47mg/dL (0.57-1.00) Estimat Glomerular Filtration Rate 211mL/min (>59) Glucose Level 108mg/dL (60-99) Calcium Level 7.7mg/dL (8.5-10.1) Total Bilirubin 0.2mg/dL (0.0-1.2) Aspartate Amino Transf (AST/SGOT) 35U/L (0-50) Alanine Aminotransferase (ALT/SGPT) 36U/L (0-32) Alkaline Phosphatase 72U/L (25-150) Total Protein 5.3g/dL (6.4-8.4) Albumin 3.2g/dL (3.4-5.0) White Blood Count 4.5th/mm3 (3.8-10.1) Red Blood Count 4.14mil/mm3 (3.90-5.20) Hemoglobin 12.6g/dL (12.0-15.6) Hematocrit 37.6% (35.0-46.0) Mean Corpuscular Volume 90.8fL (81-100) Mean Corpuscular Hemoglobin 30.4pg (27.0-35.0) Mean Corpuscular Hemoglobin Concent 33.5% (32.0-37.0) Red Cell Distribution Width 12.3% (12.3-15.4) Platelet Count 198bil/L (150-400) Test 12/05/16 05:41 Activated Partial Thromboplast Time 57.6sec (22.8-33.0) Discharge Medications Discharge Medications Duloxetine (Cymbalta) 30 Mg Capsule.dr 30 MG PO DAILY (Reported) Enoxaparin Sodium (Enoxaparin Sodium) 100 Mg/1 Ml Syringe 90 MG AD Q12 Prescribed by: JESSICA BLAS MD Pregabalin (Lyrica) 225 Mg Capsule 225 MG PO BID (Reported) Rifampin (Rifampin) 150 Mg Capsule 150 MG PO BID (Reported) Sumatriptan Succinate (Imitrex) 4 Mg/0.5 Ml Cartridge 4 MG SQ ASDIRECTED ( Reported) Topiramate (Topamax) 100 Mg Tablet 100 MG PO BID (Reported) Warfarin Sodium (Warfarin Sodium) 5 Mg Tablet 5 MG AD DAILY 5 mg daily for 3 days then as directed by your physician Prescribed by: JESSICA BLAS MD As needed Clonazepam (Clonazepam) 0.5 Mg Tab 0.5 MG PO TID PRN PRN For Anxiety (Reported) Eletriptan HBr (Relpax) 20 Mg Tablet 20 MG PO BID PRN PRN MIGRAINE (Reported) Hydrocodone-Acetaminophen 7.5-325 mg (Hydrocodone-Acetaminophen 7.5-325 mg) 1 Each Tablet 1 EACH PO BID PRN PRN For Pain (Reported) Ondansetron ODT (Ondansetron ODT) 8 Mg Tab.rapdis 8 MG PO Q8 PRN PRN prn ( Reported) Propranolol HCl (Propranolol HCl) 20 Mg Tablet 20 MG PO TID PRN PRN Headache ( Reported) oxyCODONE-Acetaminophen 10-325 mg (oxyCODONE-Acetaminophen 10-325 mg) 1 Each Tablet 1 TABLET PO HS PRN PRN For Pain (Reported) Miscellaneous Medications Adalimumab (Humira) 10 Mg/0.2 Ml Syringekit 10 MG SQ (Reported) Followup Plan Discharge Diet: No restrictions Discharge Activity: No restrictions Follow-up with PCP in: 1 week Jessica Blas MD Dec 05, 2016 10:52 Followup Plan Discharge Diet: No restrictions Discharge Activity: No restrictions Follow-up with PCP in: 1 week Jessica Blas MD Dec 05, 2016 10:52
[2016-12-05] MEDS ORDERED: ENOX100D4 AD (11:09)
[2016-12-05] MEDS ORDERED: WARF5TAB7 AD (11:09)
[2016-12-05] MEDS ORDERED: WARF5TAB7 PO (11:27)
[2016-12-05] MEDS ORDERED: ENOX100D4 SQ (11:27)
--- NOTE | 2016-12-05 12:12 | NUR ---
Social Work- Discharge/Multidisciplinary Rounds Data: EMR reviewed. Pt is on day 4 of hospitalization for DVT/PE. Pt discussed in multidisciplinary rounds, pt to d/c today. Discharge orders are active. Pt to discharge home via POV, no additional d/c planning needs identified. Pt is independent at baseline, residing with family in [place]. No additional d/c needs. Assessment: Pt who is independent at baseline. Plan: Pt to d/c home with family to transport via POV. Pt is independent at baseline, residing with family in [place]. No additional d/c needs. Bessie Beasley MSW
[2016-12-05] MEDS ORDERED: KLO5T PO (12:18)
[2016-12-05] MEDS: Ondansetron 2 mg/mL 2 mL Inj IVPUSH PRN (12:54)
--- NOTE | 2016-12-05 14:34 | NUR ---
Discharge D/C to home with family. D/C packet discussed and provided with RXs, care notes and f/u info. Comfortable with plan of care and no further questions. Escorted off floor via w/c and MACHINE SPLITTER with all belongings.
== END 2016-12-05 13:35 | disposition home or self-care (01) | DRG 299 ==
LOC: SED 17:07 → PCC 19:58 → MPC 12-04 18:12
PROVIDERS: ADMIT Hospitalist; ATTEND Internal Medicine
DX: I82.432 Acute embolism and thrombosis of left popliteal vein (principal); I26.99 Other pulmonary embolism without acute cor pulmonale; J96.01 Acute respiratory failure with hypoxia; A15.8 Other respiratory tuberculosis; M45.9 Ankylosing spondylitis of unspecified sites in spine; F12.90 Cannabis use, unspecified, uncomplicated; F32.9 Major depressive disorder, single episode, unspecified; F17.200 Nicotine dependence, unspecified, uncomplicated; M79.7 Fibromyalgia; G43.909 Migraine, unspecified, not intractable, without status migrainosus; Z79.899 Other long term (current) drug therapy; Z79.01 Long term (current) use of anticoagulants